=== PATIENT | female | born 1975 | race Two or more races ===

== ENCOUNTER 2017-09-07 08:08 | Day surgery (SDC) | payer OTHER ==
[2017-09-04 16:51] LABS: Basophils # (auto) 0.1 uL; Eosinophils # (auto) 0.6 uL; Lymphocytes # (auto) 2.3 uL; Red Cell Distribution Width 16.8 % (11.8-14.3)
[2017-09-04 16:54] LABS: Basophils % (auto) 1.3 % (0.0-2.0); Eosinophils % (auto) 5.1 % (0.0-7.0); Hematocrit 35.5 % (36.0-46.0); Hemoglobin 11.3 g/dL (12.2-16.2); Lymphocytes % (auto) 20.7 % (10.0-50.0); Mean Corpuscular Hemoglobin 25.4 pg (28.0-32.0); Mean Corpuscular Hgb Conc. 31.8 g/dL (32.0-36.0); Mean Corpuscular Volume 79.9 fL (80.0-100.0); Monocytes # (auto) 0.4 uL; Neutrophils # (auto) 7.7 uL; Neutrophils % (auto) 68.9 % (37.0-80.0); Platelet Count (auto) 401 10^3/uL (140-450); Red Blood Cells 4.44 10^6/uL (4.0-5.20); White Blood Cell 11.1 10^3/uL (4.4-10.8)
[2017-09-04 17:35] LABS: INR 0.94 (0.9-1.15); Prothrombin Time 10.2 sec (9.37-12.3)
[~2017-09-07] VITALS: Ht 165.1 cm; Wt 94.8 kg
[2017-09-07] MEDS ORDERED: NALOXONE HCL 0.4 MG/ML VIAL ONE (08:13)
[2017-09-07] MEDS ORDERED: FLUMAZENIL 0.1 MG/ML INJ 10ML MDV IV ONE (08:13)
[2017-09-07] MEDS ORDERED: diphenhdrAMINE HCL 50 MG/1 ML VL ONE (08:14)
[2017-09-07] MEDS ORDERED: SODIUM CHLORIDE LOCK 10 ML ONE (08:15)
[2017-09-07] MEDS: MIDAZOLAM HCL 5 MG/ML-1ML VIAL ONE ×3 (08:50→08:59)
[2017-09-07] MEDS: fentaNYL CITRATE 100 MCG/2 ML VL ONE ×3 (08:50→08:59)
[2017-09-07] MEDS ORDERED: MIDAZOLAM HCL 5 MG/ML-1ML VIAL ONE (09:03)
[2017-09-07] MEDS ORDERED: fentaNYL CITRATE 100 MCG/2 ML VL ONE (09:03)
[2017-09-07 09:55] VITALS: BP 106/74
== END 2017-09-07 09:55 | disposition home or self-care (01) ==
LOC: GI 08:08
PROVIDERS: ATTEND Internal Medicine Gastroenterology
DX: K64.8 Other hemorrhoids (principal); K92.1 Melena; E66.9 Obesity, unspecified; Z68.34 Body mass index [BMI] 34.0-34.9, adult
CPT/HCPCS: 36415; 45378; 84702; 85025; 85610; J1200; J2250; J3010; 99152; 99153